=== PATIENT | male | born 1975 | race Caucasian/White ===

== ENCOUNTER 2017-10-18 14:18 | Emergency (ER) | payer BC ==
[2017-10-18 14:30] VITALS: BP 141/73
--- NOTE | 2017-10-18 15:55 | XRAY Report ---
EXAM: CHEST RADIOGRAPHY EXAM DATE: 10/18/2017 03:36 PM. CLINICAL HISTORY: Cough, fever. COMPARISON: None. TECHNIQUE: 2 views. FINDINGS: Lungs/Pleura: No pleural effusion or pneumothorax. Mild bilateral bronchial wall thickening. Mediastinum: Heart and mediastinal contours are unremarkable. Other: Status post median sternotomy with the lowermost and uppermost sternal wires broken. IMPRESSION: Bilateral bronchial wall thickening which can be seen in bronchitis or reactive airways d isgemmae. [facility] Referring Provider Line: [phone] SITE ID: [id number]
[2017-10-18] MEDS ORDERED: predniSONE 20 MG TABLET PO STA (16:18)
[2017-10-18] MEDS ORDERED: IPRATROPIUM/ALBUTEROL 3 ML NEB INH STA (16:19)
--- NOTE | 2017-10-18 16:24 | ED Physician Documentation ---
PD HPI URI - Stated complaint Stated Complaint: COUGH - Chief complaint Chief Complaint: Resp - History obtained from History obtained from: Patient - History of Present Illness Timing - onset: How many weeks ago (1) Timing duration: Weeks (1) Timing details: Gradual onset Pain level max: 4 Pain level now: 2 Associated symptoms: Fever (none now, but last week), Nasal congestion, Rhinorrhea, Dry cough, Dyspnea (wheezing) Contributing factors: COPD / asthma (never used inhalers before, but smokes) Improves by: Rest Worsened by: Activity, Breathing Recently seen: Not recently seen Review of Systems Ears: denies: Ear pain Respiratory: reports: Cough, Wheezing GI: denies: Vomiting, Diarrhea Skin: denies: Rash Musculoskeletal: denies: Neck pain, Back pain Neurologic: denies: Headache PD PAST MEDICAL HISTORY - Past Medical History Past Medical History: Yes Cardiovascular: Coronary artery disease, [place] Neuro: None Musculoskeletal: None - Past Surgical History Past Surgical History: Yes Cardiovascular: CABG - Present Medications Home Medications: Ambulatory Orders Medication Instructions Recorded Confirmed Lisinopril 2.5 mg PO BID 09/10/15 09/10/15 Metoprolol Tartrate 25 mg PO TID 09/10/15 09/10/15 Pantoprazole [Protonix] 40 mg PO DAILY 09/10/15 09/10/15 Rosuvastatin Calcium [Crestor] 40 mg PO DAILY 09/10/15 09/10/15 Albuterol Sulf [Ventolin Hfa 1 - 2 puffs INH Q4HR PRN #1 inhaler 10/18/17 Inhaler] Benzonatate [Tessalon Perle] 100 - 200 mg PO TID PRN #30 capsule 10/18/17 predniSONE [Prednisone] 40 mg PO DAILY #10 tablet 10/18/17 - Allergies Allergies/Adverse Reactions: Allergies Allergy/AdvReac Type Severity Reaction Status Date / Time No Known Drug Allergies Allergy Verified 09/10/15 12:48 - Social History Does the pt smoke?: Yes Smoking Status: Current some day smoker Does the pt drink ETOH?: Yes Does the pt have substance abuse?: No - Immunizations Immunizations are current?: Yes PD ED PE NORMAL - Vitals Vital signs reviewed: Yes - General General: Alert and oriented X 3, No acute distress, Well developed/nourished - HEENT HEENT: PERRL, Ears normal, Moist mucous membranes, Pharynx benign - Neck Neck: Supple, no meningeal sign, No adenopathy - Cardiac Cardiac: RRR, Strong equal pulses - Respiratory Respiratory: No respiratory distress, Other (wheezing bilaterally.) - Abdomen Abdomen: Soft, Non tender, Non distended - Derm Derm: Warm and dry, No rash - Extremities Extremities: No edema, No calf tenderness / cord - Neuro Neuro: Alert and oriented X 3 - Psych Psych: Normal mood, Normal affect Results - Vitals Vitals: Vital Signs - 24 hr 10/18/17 10/18/17 14:21 16:31 Temperature 36.0 C L Heart Rate 71 83 Respiratory 18 18 Rate Blood Pressure 141/73 H O2 Saturation 96 Oxygen O2 Source Room air - Rads (name of study) cxr Radiology: Prelim report reviewed, EMP read contemporaneously, See rad report ( Bilateral bronchial wall thickening which can be seen in bronchitis or reactive airway disease) PD MEDICAL DECISION MAKING - ED course Complexity details: reviewed results, re-evaluated patient, considered differential, d/w patient ED course: Patient is a 42-year-old male who presents to the emergency department with what appears to be a viral upper respiratory infection complicated by wheezing. He is only 42 and his artery had a 5 way bypass, encouraged him to stop smoking. No pneumonia. No sepsis. We will continue supportive care and follow- up with his doctor. Patient counseled regarding signs and symptoms for which I believe and urgent re-evaluation would be necessary. Patient with good understanding of and agreement to plan and is comfortable going home at this time This document was made in part using voice recognition software. While efforts are made to proofread this document, sound alike and grammatical errors may occur. Departure - Departure Disposition: 01 Home, Self Care Clinical Impression: Viral URI with cough Condition: Good Instructions: ED Viral Syndrome Follow-Up: Jany Yi MD [Primary Care Provider] - Within 1 week Prescriptions: Albuterol Sulf [Ventolin Hfa Inhaler] 1 - 2 puffs INH Q4HR PRN #1 inhaler PRN Reason: Shortness Of Air/Wheezing Benzonatate [Tessalon Perle] 100 - 200 mg PO TID PRN #30 capsule PRN Reason: Cough predniSONE [Prednisone] 40 mg PO DAILY #10 tablet Comments: Return if you worsen. This should improve over the next week. You need to stop smoking. Discharge Date/Time: 10/18/17 17:11
== END 2017-10-18 17:11 | disposition home or self-care (01) ==
LOC: ED 14:18
DX: J06.9 Acute upper respiratory infection, unspecified (principal); B97.89 Other viral agents as the cause of diseases classified elsewhere; R05 Cough; I25.10 Atherosclerotic heart disease of native coronary artery without angina pectoris; I25.2 Old myocardial infarction; F17.200 Nicotine dependence, unspecified, uncomplicated; Z95.1 Presence of aortocoronary bypass graft
CPT/HCPCS: 71046; 94640; 94664; 99283; J7512; J7620

== ENCOUNTER 2020-03-03 05:18 | Emergency (ER) | payer BC ==
--- NOTE | 2020-03-03 05:20 | ED Physician Documentation ---
PD HPI ABD PAIN - Stated complaint Stated Complaint: ABD PX - History obtained from History obtained from: Patient - History of Present Illness Timing - onset: How many weeks ago (3 weeks) Timing - details: Abrupt onset, Intermittant Pain level now: 8 Quality: Pain Location: RUQ, Epigastric Radiation: Other (does not radiate) Improved by: Other (no ameliorating factors) Worsened by: Position (lying down) Associated symptoms: Fever, Nausea, Vomiting. No: Diarrhea, Constipation Similar symptoms before: Has not had sx before Recently seen: Not recently seen - Additional information Additional information: c/o abdominal pain, across upper abdomen but most pronounced in epigastrium, episodic x 3 weeks but increasingly frequent, intense, and persistent. Denies h/o similar symptoms Review of Systems Constitutional: denies: Fever, Chills, Sweats Cardiac: reports: Reviewed and negative Respiratory: reports: Reviewed and negative GI: reports: Abdominal Pain, Nausea, Vomiting. denies: Abdominal Swelling, Constipation, Diarrhea : denies: Dysuria, Frequency, Hematuria Skin: reports: Reviewed and negative Musculoskeletal: reports: Reviewed and negative PD PAST MEDICAL HISTORY - Past Medical History Cardiovascular: Coronary artery disease, [place] Musculoskeletal: None - Past Surgical History Past Surgical History: Yes Cardiovascular: CABG - Present Medications Home Medications: Ambulatory Orders Medication Instructions Recorded Confirmed Metoprolol Tartrate 25 mg PO TID 09/10/15 09/10/15 Pantoprazole [Protonix] 40 mg PO DAILY 09/10/15 09/10/15 Rosuvastatin Calcium [Crestor] 40 mg PO DAILY 09/10/15 09/10/15 lisinopriL [Lisinopril] 2.5 mg PO BID 09/10/15 09/10/15 Albuterol Sulf [Ventolin Hfa 1 - 2 puffs INH Q4HR PRN #1 inhaler 10/18/17 Inhaler] Benzonatate [Tessalon Perle] 100 - 200 mg PO TID PRN #30 capsule 10/18/17 predniSONE [Prednisone] 40 mg PO DAILY #10 tablet 10/18/17 Lidocaine HCl [Lidocaine HCl 15 ml PO QID PRN #100 ml 03/03/20 Viscous] Ondansetron Odt [Zofran] 4 mg TL Q6H PRN #10 tablet 03/03/20 oxyCODONE [Roxicodone] 5 - 10 mg PO Q6H PRN #14 tablet 03/03/20 - Allergies Allergies/Adverse Reactions: Allergies Allergy/AdvReac Type Severity Reaction Status Date / Time No Known Drug Allergies Allergy Verified 09/10/15 12:48 - Social History Does the pt smoke?: Yes Smoking Status: Current some day smoker Does the pt drink ETOH?: Yes Does the pt have substance abuse?: No - Immunizations Immunizations are current?: Yes PD ED PE NORMAL - Vitals Vital signs reviewed: Yes - General General: Alert and oriented X 3, Well developed/nourished, Other (appears uncomfortable, painful distress) - HEENT HEENT: Moist mucous membranes - Neck Neck: Supple, no meningeal sign - Cardiac Cardiac: RRR, No murmur, No gallop, No rub - Respiratory Respiratory: No respiratory distress, Clear bilaterally - Abdomen Abdomen: Normal bowel sounds, Soft, Non distended - Back Back: No CVA TTP - Derm Derm: Normal color, Warm and dry, No rash PD ED PE EXPANDED - Abdomen Abdomen: Tender to palpation, RUQ, Epigastric. No: Rebound, Guarding Results - Vitals Vitals: Vital Signs - 24 hr 03/03/20 05:28 Temperature 36.4 C L Heart Rate 80 Respiratory 20 Rate Blood Pressure 188/109 H O2 Saturation 98 Oxygen O2 Source Room air - EKG (time done) No standard instances Rate: Rate (enter#) (71) Rhythm: NSR [place]: LAD Intervals: Normal [place] QRS: Normal Ischemia: Normal ST segments, Q waves (V1-V3) - Labs Labs: Laboratory Tests 03/03/20 03/03/20 03/03/20 05:40 05:40 05:40 WBC 8.6 RBC 5.88 Hgb 16.2 Hct 48.0 MCV 81.6 MCH 27.6 MCHC 33.8 RDW 13.5 Plt Count 216 MPV 8.6 Neut # (Auto) 6.3 Lymph # (Auto) 1.7 [place] # (Auto) 0.5 Eos # (Auto) 0.0 Baso # (Auto) 0.0 Absolute Nucleated RBC 0.00 Nucleated RBC % 0.0 Sodium 136 Potassium 4.1 Chloride 96 L Carbon Dioxide 28 Anion Gap 12.0 BUN 16 Creatinine 1.1 Estimated GFR (MDRD) 73 L Glucose 144 H Calcium 9.9 Total Bilirubin 0.5 AST 29 ALT 34 Alkaline Phosphatase 78 Troponin I High Sens 15.7 Total Protein 7.6 Albumin 4.5 Globulin 3.1 Albumin/Globulin Ratio 1.5 Lipase 29 - Rads (name of study) RUQ US Radiology: Prelim report reviewed, See rad report PD MEDICAL DECISION MAKING - ED course Complexity details: reviewed results, re-evaluated patient, considered differential, d/w patient, d/w family Departure - Departure Disposition: Home, Self Care Clinical Impression: Abdominal pain Condition: Good Instructions: ED Abdominal Pain Unkn Cause Prescriptions: Lidocaine HCl [Lidocaine HCl Viscous] 15 ml PO QID PRN #100 ml PRN Reason: Abdominal Pain oxyCODONE [Roxicodone] 5 - 10 mg PO Q6H PRN #14 tablet PRN Reason: Pain Ondansetron Odt [Zofran] 4 mg TL Q6H PRN #10 tablet PRN Reason: Nausea / Vomiting
[2020-03-03] MEDS ORDERED: SODIUM CHLORIDE 0.9% 1,000 ML IV STA (05:45)
[2020-03-03] MEDS ORDERED: ONDANSETRON 4 MG/2 ML VIAL IVP STA (05:45)
[2020-03-03] MEDS ORDERED: HYDROmorphone 1 MG/ML CARPUJECT IVP STA ×3 (05:45→08:53)
[2020-03-03 05:53] LABS: BASOPHILS % (AUTO) 0.3 %; EOSINOPHILS % (AUTO) 0.5 %; HGB - HEMOGLOBIN 16.2 g/dL (14.0-18.0); LYMPHOCYTES # (AUTO) 1.7 10^3/uL (1.5-3.5); LYMPHOCYTES % (AUTO) 19.5 %; MEAN CORPUSCULAR HEMOGLOBIN 27.6 pg (27.0-31.0); MEAN CORPUSCULAR HGB CONC 33.8 g/dL (32.0-36.0); MEAN CORPUSCULAR VOLUME 81.6 fL (80.0-94.0); MEAN PLATELET VOLUME 8.6 fL (7.4-11.4); MONOCYTES # (AUTO) 0.5 10^3/uL (0.0-1.0); MONOCYTES % (AUTO) 6.3 %; NEUTROPHILS # (AUTO) 6.3 10^3/uL (1.5-6.6); NEUTROPHILS % (AUTO) 72.8 %; PLT - PLATELET COUNT 216 10^3/uL (130-450); RED BLOOD COUNT 5.88 10^6/uL (4.70-6.10); RED CELL DISTRIBUTION WIDTH 13.5 % (12.0-15.0); WHITE BLOOD COUNT 8.6 x10^3/uL (4.8-10.8)
[2020-03-03] MEDS ORDERED: ONDANSETRON 4 MG/2 ML VIAL ONE (06:03)
[2020-03-03 06:07] LABS: ALBUMIN 4.5 g/dL (3.2-5.5); ALBUMIN/GLOBULIN RATIO 1.5 (1.0-2.2); BILIRUBIN,TOTAL 0.5 mg/dL (0.2-1.0); CALCIUM 9.9 mg/dL (8.5-10.3); CREATININE 1.1 mg/dL (0.6-1.2); TOTAL PROTEIN 7.6 g/dL (6.7-8.2)
--- NOTE | 2020-03-03 08:23 | Ultrasound Report ---
PROCEDURE: Abdomen Limited INDICATIONS: RUQ, epigastric pain TECHNIQUE: Real-time focused scanning was performed of the abdomen, with image documentation. COMPARISON: None FINDINGS: The liver is echogenic consistent with fatty change. No focal liver mass. Liver is not enl arged. No gallstones. No gallbladder wall thickening. No sonographic Darby's sign. Visualized portions of the pancreas are unremarkable. Right kidney measures 10.6 cm. No right hydronephrosis. IMPRESSION: 1. Hepatic steatosis. 2. No gallstone disease. Reviewed by: Honorio Bustamante MD on 03/03/2020 7:22 AM [facility] Approved by: Honorio Bustamante MD on 03/03/2020 7:22 AM CHUCK Station ID: [id number]
[2020-03-03] MEDS ORDERED: LIDOCAINE VISCOUS 2% 15 ML UDC MM STA (08:53)
[2020-03-03] MEDS ORDERED: PANTOPRAZOLE 40 MG TABLET PO STA (08:53)
[2020-03-03] MEDS ORDERED: MAG HYDROX/AL HYDROX/SIMETH 30 ML UDC PO STA (08:53)
[2020-03-03 09:34] VITALS: BP 138/86
== END 2020-03-03 09:33 | disposition home or self-care (01) ==
LOC: ED 05:18
DX: R10.11 Right upper quadrant pain (principal); R10.13 Epigastric pain; R11.2 Nausea with vomiting, unspecified; K76.0 Fatty (change of) liver, not elsewhere classified; I25.10 Atherosclerotic heart disease of native coronary artery without angina pectoris; Z95.1 Presence of aortocoronary bypass graft; F17.200 Nicotine dependence, unspecified, uncomplicated
CPT/HCPCS: 36415; 76705; 80053; 83690; 84484; 85025; 93005; 96361; 96374; 96375; 96376; 99284; A9270; J1170

== ENCOUNTER 2020-03-07 10:44 | Outpatient (CLI) | payer BC | END 2020-03-07 10:45 | disposition home or self-care (01) | LOC: LAB.S 10:44 | PROVIDERS: ATTEND Family Medicine | DX: Z53.9 Procedure and treatment not carried out, unspecified reason (principal) ==

== ENCOUNTER 2020-03-08 08:00 | Outpatient (CLI) | payer BC ==
[2020-03-08 15:37] LABS: H. PYLORIS ANTIGEN STL NEGATIVE (Negative)
== END 2020-03-08 23:59 | disposition home or self-care (01) ==
LOC: LAB.R 08:00
PROVIDERS: ATTEND Family Medicine
DX: R10.9 Unspecified abdominal pain (principal)
CPT/HCPCS: 87338

== ENCOUNTER 2020-03-08 11:54 | Emergency (ER) | payer BC ==
--- NOTE | 2020-03-08 12:27 | ED Physician Documentation ---
PD HPI DYSPNEA - Stated complaint Stated Complaint: CP PX - Chief complaint Chief Complaint: Cardiac - History obtained from History obtained from: Patient, Family - History of Present Illness Timing - onset: How many weeks ago (3) Timing - duration: Weeks Timing - details: Gradual onset, Still present Pain level max: 9 Pain level now: 4 - Additional information Additional information: 44-year-old male presents to the emergency department with chief complaint of unabated epigastric abdominal pain. Was seen for similar here March 03. At that time he had a negative work-up. Since then patient reports that his pain has become progressive. He is started to have black or melena colored stools as well as pink light red vomit. Patient denies taking any anticoagulation or NSAIDs. He does take a baby aspirin every day. He has no pertinent past abdominal surgical history. His only surgical history is that of a CABG in 2013.At this time patient does endorse chest pain and some dyspnea as well.He has had no fevers syncope.Has never had a colonoscopy or EGD. Patient has been prescribed omeprazole in the past for suspected GERD. Patient saw his primary care physician yesterday and was prescribed Prilosec. He has not filled it, however he reports that the omeprazole is no longer helping with the symptoms. PD PAST MEDICAL HISTORY - Past Medical History Cardiovascular: Coronary artery disease, [place] Musculoskeletal: None - Past Surgical History Past Surgical History: Yes Cardiovascular: CABG - Present Medications Home Medications: Ambulatory Orders Medication Instructions Recorded Confirmed Metoprolol Tartrate 25 mg PO TID 09/10/15 09/10/15 Pantoprazole [Protonix] 40 mg PO DAILY 09/10/15 09/10/15 Rosuvastatin Calcium [Crestor] 40 mg PO DAILY 09/10/15 09/10/15 lisinopriL [Lisinopril] 2.5 mg PO BID 09/10/15 09/10/15 Albuterol Sulf [Ventolin Hfa 1 - 2 puffs INH Q4HR PRN #1 inhaler 10/18/17 Inhaler] Benzonatate [Tessalon Perle] 100 - 200 mg PO TID PRN #30 capsule 10/18/17 predniSONE [Prednisone] 40 mg PO DAILY #10 tablet 10/18/17 Lidocaine HCl [Lidocaine HCl 15 ml PO QID PRN #100 ml 03/03/20 Viscous] Ondansetron Odt [Zofran] 4 mg TL Q6H PRN #10 tablet 03/03/20 oxyCODONE [Roxicodone] 5 - 10 mg PO Q6H PRN #14 tablet 03/03/20 - Allergies Allergies/Adverse Reactions: Allergies Allergy/AdvReac Type Severity Reaction Status Date / Time No Known Drug Allergies Allergy Verified 09/10/15 12:48 - Social History Does the pt smoke?: Yes Smoking Status: Current some day smoker Does the pt drink ETOH?: Yes Does the pt have substance abuse?: No - Immunizations Immunizations are current?: Yes PD ED PE EXPANDED - General General: Alert, Other (appears uncomfortable) - Neck Neck: No tenderness. No: Adenopathy - Cardiac Cardiac: Regular Rate, Radial strong equal - Respiratory Respiratory: Clear to ausultation latricia. No: Distress, Labored - Abdomen Abdomen: Normal Bowel sounds, RUQ, Epigastric, Other (tenderness epigastrium and RUQ. ) Results - Vitals Vitals: Vital Signs - 24 hr 03/08/20 03/08/20 03/08/20 12:00 12:06 12:24 Temperature 36.9 C Heart Rate 91 92 Respiratory 17 20 Rate Blood Pressure 166/107 H 107/107 H Blood Pressure 170/107 H [Left] O2 Saturation 98 03/08/20 03/08/20 03/08/20 12:36 13:30 16:31 Temperature 36.9 C Heart Rate 94 81 77 Respiratory 19 20 19 Rate Blood Pressure 149/91 H 140/90 H 127/89 H Blood Pressure [Left] O2 Saturation 95 96 97 Oxygen O2 Source Room air - EKG (time done) 1203 Rate: Rate (enter#) (86) Rhythm: NSR [place]: LAD Intervals: Normal ID QRS: Normal Ischemia: Non specific changes Compare to prior EKG: Unchanged from prior EKG Computer interpretation: Agree with computer (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) - Labs Labs: Laboratory Tests 03/08/20 03/08/20 03/08/20 12:20 12:20 12:20 WBC 8.6 RBC 5.78 Hgb 16.1 Hct 47.1 MCV 81.5 MCH 27.9 MCHC 34.2 RDW 13.6 Plt Count 220 MPV 8.9 Neut # (Auto) 6.6 Lymph # (Auto) 1.2 L [place] # (Auto) 0.7 Eos # (Auto) 0.1 Baso # (Auto) 0.0 Absolute Nucleated RBC 0.00 Nucleated RBC % 0.0 PT INR APTT Sodium 135 Potassium 4.0 Chloride 99 L Carbon Dioxide 25 Anion Gap 11.0 BUN 18 Creatinine 1.0 Estimated GFR (MDRD) 82 L Glucose 145 H Lactic Acid Calcium 9.4 Total Bilirubin 2.8 H AST 412 H ALT 416 H Alkaline Phosphatase 146 H Troponin I High Sens 11.8 Total Protein 8.1 Albumin 4.8 Globulin 3.3 Albumin/Globulin Ratio 1.5 Lipase 44 03/08/20 03/08/20 12:20 12:40 WBC RBC Hgb Hct MCV MCH MCHC RDW Plt Count MPV Neut # (Auto) Lymph # (Auto) [place] # (Auto) Eos # (Auto) Baso # (Auto) Absolute Nucleated RBC Nucleated RBC % PT 12.5 INR 1.1 APTT 33.4 H Sodium Potassium Chloride Carbon Dioxide Anion Gap BUN Creatinine Estimated GFR (MDRD) Glucose Lactic Acid 1.4 Calcium Total Bilirubin AST ALT Alkaline Phosphatase Troponin I High Sens Total Protein Albumin Globulin Albumin/Globulin Ratio Lipase - Rads (name of study) ABD CT Radiology: Final report received (Choledocholithiasis demonstrated with multiple clustered stones in the distal common bile duct no associated biliary ductal dilationCholelithiasis without CT evidence of cholecystitis.) abd us Radiology: Final report received (Diffuse hepatic steatosis versus chronic hepatocellular disease.No biliary ductal dilation visualized. Limited visualization of the gallbladder with areas of mildly thickened gallbladder wall. No definite sonographic evidence for Coleydocolithiasis or acute cholecystitis) PD MEDICAL DECISION MAKING - ED course Complexity details: reviewed old records, reviewed results, re-evaluated patient, d/w patient, d/w family ED course: 44-year-old gentleman returns to the emergency department with persistent right upper quadrant and epigastric abdominal pain. Seen for similar 2 days ago. - On repeat labs today he certainly has developed an obstructive transaminitis.CT scan of the abdomen shows choledocholithiasis. - I have spoken with the surgeon Dr. Tenorio at [facility] and she is agreed for patient to be transferred. - I have discussed these findings with the patient and his . He is clinically stable for transfer and will be transported via ALS. Departure - Departure Disposition: 02 Transfer Acute Care Hosp Clinical Impression: Choledocholithiasis Condition: Stable
[2020-03-08 12:30] LABS: BASOPHILS % (AUTO) 0.5 %; EOSINOPHILS # (AUTO) 0.1 10^3/uL (0.0-0.7); EOSINOPHILS % (AUTO) 0.6 %; HGB - HEMOGLOBIN 16.1 g/dL (14.0-18.0); LYMPHOCYTES # (AUTO) 1.2 10^3/uL (1.5-3.5); LYMPHOCYTES % (AUTO) 13.3 %; MEAN CORPUSCULAR HEMOGLOBIN 27.9 pg (27.0-31.0); MEAN CORPUSCULAR HGB CONC 34.2 g/dL (32.0-36.0); MEAN CORPUSCULAR VOLUME 81.5 fL (80.0-94.0); MEAN PLATELET VOLUME 8.9 fL (7.4-11.4); MONOCYTES # (AUTO) 0.7 10^3/uL (0.0-1.0); MONOCYTES % (AUTO) 8.2 %; NEUTROPHILS # (AUTO) 6.6 10^3/uL (1.5-6.6); NEUTROPHILS % (AUTO) 76.8 %; PLT - PLATELET COUNT 220 10^3/uL (130-450); RED BLOOD COUNT 5.78 10^6/uL (4.70-6.10); RED CELL DISTRIBUTION WIDTH 13.6 % (12.0-15.0); WHITE BLOOD COUNT 8.6 x10^3/uL (4.8-10.8)
[2020-03-08 12:40] LABS: INR 1.1 (0.8-1.2); PT - PROTHROMBIN TIME 12.5 secs (9.9-12.6)
[2020-03-08 12:47] LABS: PARTIAL THROMBOPLASTIN TIME 33.4 secs (24.9-33.3)
[2020-03-08 12:50] LABS: ALBUMIN 4.8 g/dL (3.2-5.5); ALBUMIN/GLOBULIN RATIO 1.5 (1.0-2.2); BILIRUBIN,TOTAL 2.8 mg/dL (0.2-1.0); CALCIUM 9.4 mg/dL (8.5-10.3); TOTAL PROTEIN 8.1 g/dL (6.7-8.2)
[2020-03-08] MEDS ORDERED: SODIUM CHLORIDE 0.9% 1,000 ML IV STA (12:50)
--- NOTE | 2020-03-08 12:53 | XRAY Report ---
PROCEDURE: Chest 1 View X-Ray INDICATIONS: Chest pain TECHNIQUE: One view of the chest was acquired. COMPARISON: To 1118 FINDINGS: Surgical changes and devices: Median sternotomy wires are again seen.. Lungs and pleura: No pleural effusions or pneumothorax. Lungs are clear. Mediastinum: Mediastinal contours appear normal. Heart size is borderline enlarged. Bones and chest wall: No suspicious bony lesions. Overlying soft tissues appear unremarkable. IMPRESSION: No acute cardiopulmonary pathology. Reviewed by: Brady Buitrago MD on 03/08/2020 12:52 PM PDT Approved by: Brady Buitrago MD on 03/08/2020 12:52 PM PDT Station ID: [id number]
[2020-03-08] MEDS ORDERED: HYDROmorphone 1 MG/ML CARPUJECT IVP STA (13:10)
[2020-03-08] MEDS ORDERED: IOVERSOL 320 100 ML VIAL IVP ONE ×2 (13:32→14:47)
--- NOTE | 2020-03-08 14:43 | CT Report ---
PROCEDURE: Abdomen/Pelvis W INDICATIONS: melena, epigastric pain CONTRAST: IV CONTRAST: Optiray 320 ml: 100 PO CONTRAST: *NO PO CONTRAST TECHNIQUE: After the administration of oral and intravenous contrast, 5 mm thick sections acquired from the diap hragms to the symphysis. 5 mm thick coronal and sagittal reformats were acquired. For radiation dos e reduction, the following was used: automated exposure control, adjustment of mA and/or kV accordin g to patient size. COMPARISON: Concurrent right upper quadrant ultrasound. FINDINGS: Image quality: Excellent. ABDOMEN: Lung bases: Lung bases are clear. Heart size is normal. Solid organs: There are calcified gallstones demonstrated in the gallbladder fundus. No associated g allbladder wall thickening or pericholecystic fluid. There is linear high density within the distal c ommon bile duct extending to the ampulla of Vater involving a segment of approximately 3.3 cm in yvette th. The findings are compatible with multiple small clustered common duct stones. There is no intra o r extra hepatic biliary ductal dilatation. Common bile duct measures up to approximately 0.6 cm in di ameter. There is mildly heterogeneous hypoattenuation of the liver consistent with fatty infiltration with re lative sparing along the gallbladder fossa. Spleen is normal in size. Pancreas enhances normally with out peripancreatic fat stranding or fluid collections. No pancreatic duct dilatation. No adrenal nodu les. Kidneys demonstrate no hydronephrosis. Peritoneum and bowel: Bowel loops demonstrate normal wall thickness and caliber. The appendix is nor mal in appearance. There are a few colonic diverticula without acute diverticulitis. No free fluid or air. Nodes and vessels: No retroperitoneal or mesenteric adenopathy by size criteria. Aorta and inferior vena cava are normal in size. Miscellaneous: No ventral hernias. PELVIS: Genitourinary: Bladder wall thickness is normal. Miscellaneous: There is a small fat-containing right inguinal hernia. No inguinal adenopathy. Bones: No suspicious bony lesions. No vertebral body compression fractures. IMPRESSION: 1. Choledocholithiasis demonstrated with multiple clustered stones in the distal common bile duct. No associated biliary ductal dilatation. 2. Cholelithiasis without CT evidence of cholecystitis. 3. Hepatic steatosis. Reviewed by: Ej Santos MD on 03/08/2020 2:42 PM PDT Approved by: Ej Santos MD on 03/08/2020 2:42 PM PDT Station ID: [id number]
--- NOTE | 2020-03-08 14:49 | Ultrasound Report ---
PROCEDURE: Abdomen Limited INDICATIONS: transaminates; eval for obstructing stone TECHNIQUE: Real-time scanning was performed of the abdominal and retroperitoneal organs, with image documentatio n. COMPARISON: CT abdomen and pelvis dated earlier same day and abdominal ultrasound dated 03/03/2020 FINDINGS: Liver: Liver is diffusely echogenic without focal intrahepatic mass lesions. Gallbladder: The gallbladder is not well visualized secondary to patient scanning characteristics. Th ere are areas of mild wall thickening measuring up to 3-4 mm in thickness. No pericholecystic fluid. No definite gallstone or choledocholithiasis as seen on comparison CT. Biliary ducts: Intrahepatic bile ducts are non-dilated. Extrahepatic bile duct caliber measures 7 m m. Normal is 6-7 mm or less in diameter, or 10 mm or less post-cholecystectomy. Pancreas: Pancreas is not well visualized secondary to bowel gas. Spleen: Spleen is normal in size a nd homogeneous in echotexture. Kidneys: Right kidney measures 12 cm long and demonstrates normal echotexture without suspicious ma ss lesions. No hydronephrosis or nephrolithiasis. No solid masses. Aorta: Visualized aorta is normal in caliber at less than 3 cm. IVC: Intrahepatic inferior vena cava is patent. Miscellaneous: No free abdominal fluid. IMPRESSION: 1. Diffuse hepatic steatosis versus chronic hepatocellular disease. 2. Limited visualization of the gallbladder with areas of mildly thickened gallbladder wall. No defin ite sonographic evidence for choledocholithiasis or acute cholecystitis. However, there were gallston es and possible choledocholith near the ampulla visualized on comparison CT from same day. No biliary ductal dilatation visualized. Reviewed by: Donovan Mary MD on 03/08/2020 2:48 PM PDT Approved by: Donovan Mary MD on 03/08/2020 2:48 PM PDT Station ID: [id number]
[2020-03-08] MEDS ORDERED: MAG HYDROX/AL HYDROX/SIMETH 30 ML UDC PO STA (15:33)
[2020-03-08] MEDS ORDERED: LIDOCAINE VISCOUS 2% 15 ML UDC MM STA (15:34)
[2020-03-08 19:29] VITALS: BP 130/88
== END 2020-03-08 19:30 | disposition short-term general hospital (02) ==
LOC: ED 11:54
DX: K80.70 Calculus of gallbladder and bile duct without cholecystitis without obstruction (principal); R74.0 Nonspecific elevation of levels of transaminase and lactic acid dehydrogenase [LDH]; F17.200 Nicotine dependence, unspecified, uncomplicated; R10.9 Unspecified abdominal pain
CPT/HCPCS: 36415; 71045; 74177; 76705; 80053; 83605; 83690; 84484; 85025; 85610; 85730; 87338; 93005; 96361; 96374; 99281; 99285; A9270; J1170; Q9967

== ENCOUNTER 2020-03-08 19:23 | Outpatient (CLI) | payer BC | END 2020-03-08 23:59 | disposition short-term general hospital (02) | LOC: EMS 19:23 | PROVIDERS: ATTEND Surgery | DX: K81.9 Cholecystitis, unspecified (principal) | CPT/HCPCS: A0425; A0427 ==

== ENCOUNTER 2020-08-04 11:55 | Outpatient (CLI) | payer BC ==
--- NOTE | 2020-08-04 13:25 | XRAY Report ---
PROCEDURE: Lumbar Spine 2 View INDICATIONS: LOW BACK PAIN TECHNIQUE: 2 views of the lumbar spine were acquired. COMPARISON: None available at time of dictation. FINDINGS: Bones: 5 [id number] vertebrae are present. There is normal bony alignment. No vertebral body compression fractures. Vertebral body heights are maintained. Intervertebral disc spaces are maintai vinod. There is mild endplate degenerative changes and facet arthropathy which is worse at the lumbosac ral junction. No suspicious bony lesions. Soft tissues: Overlying bowel gas pattern is normal. A few vascular calcifications within the aorta. IMPRESSION: Mild multilevel lumbar spondylosis. Reviewed by: Khoi Ziegler DO on 08/04/2020 12:24 PM [facility] Approved by: Khoi Ziegler DO on 08/04/2020 12:24 PM [facility] Station ID: [id number]
== END 2020-08-04 23:59 | disposition home or self-care (01) ==
LOC: DI.S 11:55
PROVIDERS: ATTEND Physician Assistant Medical
DX: M47.816 Spondylosis without myelopathy or radiculopathy, lumbar region (principal); M47.817 Spondylosis without myelopathy or radiculopathy, lumbosacral region

== ENCOUNTER 2022-09-20 09:00 | Outpatient (CLI) | payer BC | END 2022-09-20 23:59 | disposition home or self-care (01) | LOC: LAB.S 09:00 | PROVIDERS: ATTEND Physician Assistant | DX: N45.1 Epididymitis (principal) | CPT/HCPCS: 87086 ==

== ENCOUNTER 2023-01-01 06:46 | Outpatient (CLI) | payer BC ==
--- NOTE | 2023-01-01 10:02 | Ultrasound Report ---
PROCEDURE: Aorta Screening INDICATIONS: TOBACCO USER TECHNIQUE: Real time scanning was performed of the aorta and iliac arteries, with image documentatio n. COMPARISON: None. FINDINGS: Aorta: Proximal aortic diameter measures 2.4 x 2.4 cm. Mid-aorta measures 2.0 x 1.9 cm. Distal aor tic diameter is 1.8 x 1.8 cm. Iliac arteries: Right common iliac artery measures 1.3 x 1.4 cm. Left common iliac artery measures 1.3 x 1.4 cm. There is calcified plaque. IMPRESSION: No abdominal aortic aneurysm. Reviewed by: Manuel Lance MD on 01/01/2023 10:01 AM PDT Approved by: Manuel Lance MD on 01/01/2023 10:01 AM PDT Station ID: [id number]
== END 2023-01-01 06:47 | disposition home or self-care (01) ==
LOC: DI 06:46
PROVIDERS: ATTEND Registered Nurse
DX: Z13.6 Encounter for screening for cardiovascular disorders (principal); Z72.0 Tobacco use

== ENCOUNTER 2023-01-06 07:40 | Outpatient (CLI) | payer BC ==
--- NOTE | 2023-01-06 07:41 | CARDIAC PROCEDURE NOTE ---
Stress Test Report Service Date: 01/06/23 Service Time: 08:00 Ordering Provider: DWAIN Bertrand Indication for Test: Repeat risk stratification for patient with 5-vessel CABG 8 yrs ago, who remains on secondary preventive measures but continues active tobacco smoking. 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 He reports that his recovery was uneventful and he returned to work as a contractor, while remaining on aspirin and rosuvastatin "most of the time" since then. He has continued active tobacco smoking however, and upon recently establishing care with his new provider (Ms Hahn) it was recommended that he undergo repeat risk stratification that is ordered today. He does not endorse concerning symptoms such as recurrent chest discomfort, unexpected exertional dyspnea or reduction in stamina. Cardiac Risk Factors: Positive for known CAD s/p CABG surgery, continued tobacco smoking, family history of premature CAD in father (SC at age 39), hyperlipidemia and hypertension; no reported hiustory of diabetes. Type of Stress Test: ETT with Echocardiography Procedure: -Exercise Treadmill Test- After signing informed consent, the patient underwent rest echo imaging (with placement of peripheral IV and administration of Definity contrast to improve endocardial border definition) and then performed treadmill exercise using a Adrian protocol. The patient exercised for 9 minutes 46 seconds and achieved a peak heart rate of 158 (91 percent predicted maximum heart rate for age), and an estimated workload of 11.4 METS. The test was terminated due to fatigue/shortness of breath. Resting heart rate: 77 Peak heart rate: 158 Normal response to exercise. Resting BP: 141/79 Peak BP: 240/101 Mildly hypertensive at rest with physiologic increase in systolic BP and abnormal increase in diastolic BP in response to exercise. Rhythm during exercise: Sinus rhythm throughout. Symptoms: The patient denied experiencing any chest/arm/jaw discomfort. EKG at rest showed normal sinus rhythm with incomplete right bundle branch block pattern, with abnormal R wave progression in leads V1V4, consistent with prior anteroseptal infarct. EKG at peak stress showed no ischemia by EKG criteria. In Recovery heart rate and blood pressure rapidly and normally returned towards baseline levels. Echo imaging, performed at rest and with stress, will be reported separately. IDeondre MD, was present throughout this treadmill stress study and supervised it in its entirety. Summary: 1) Exercise tolerance modestly reduced for age and sex as evidenced by ARNEL of 12%. 2) Abnormal resting EKG. 3) Adequate level of exercise was achieved on this treadmill stress test. 5) No ischemic changes by EKG criteria were seen at peak stress. 6) Echo image interpretation reveals normal left ventricular size, wall thickness and systolic function, with paradoxical septal motion consistent with prior bypass surgery. With exercise there was appropriate hyperdynamic augmentation of all segments, indicating no inducible ischemia. No significant valvular abnormality or elevation of estimated pulmonary artery systolic pressure seen on screening study. See separate report for more details. Conclusions and Recommendations: 1) Reassuring Adrian protocol treadmill results with appropriate hemodynamic response, and no evidence of inducible ischemia by symptoms, EKG or echo criteria. 2) Patient is encouraged to re-establish with Cardiology, to confirm that his medical regimen remains appropriate, as well as to renew his efforts at discontinuation of cigarette smoking.
[2023-01-06] MEDS ORDERED: NITROGLYCERIN SL 0.4 MG TABLET SL ONE (07:45)
[2023-01-06] MEDS ORDERED: PERFLUTREN LIPID MICROSPHERES 1.65 MG/1.5 ML VIAL IVP ONE (09:14)
== END 2023-01-06 07:41 | disposition home or self-care (01) ==
LOC: DI 07:40
PROVIDERS: ATTEND Registered Nurse
DX: I21.9 Acute myocardial infarction, unspecified (principal); I45.10 Unspecified right bundle-branch block; I25.10 Atherosclerotic heart disease of native coronary artery without angina pectoris; E78.5 Hyperlipidemia, unspecified; I10 Essential (primary) hypertension; F17.200 Nicotine dependence, unspecified, uncomplicated; Z95.1 Presence of aortocoronary bypass graft; Z82.49 Family history of ischemic heart disease and other diseases of the circulatory system
CPT/HCPCS: 93016; 93017; 93018; 93350; A9270; Q9957

== ENCOUNTER 2023-07-21 16:07 | Emergency (ER) | payer BC ==
[2023-07-21 16:25] VITALS: BP 177/96; O2SAT 98
--- NOTE | 2023-07-21 17:02 | ED Physician Documentation ---
History of Present Illness - Stated complaint Stated Complaint: BACK PX - Chief complaint Chief Complaint: Back Pain - Additonal information Additional information: 47-year-old male presents emergency department for evaluation of 1 month low back pain. Reports that it is midline and radiates to both buttocks. No falls or trauma. No fevers. No history of IV drug use. No history of cancer. No night sweats or weight loss. No saddle anesthesia, no loss of bowel or bladder function. Patient has been to the local walk-in clinic twice once receiving Flexeril without relief of pain was seen again on the where he received a Medrol Dosepak again without relief of pain. He is taking ibuprofen 800 mg twice daily which she says does improve the pain for short period of time. States that most of the pain is when he first gets up or gets moving but as he starts to walk it gently gets better. Review of Systems Musculoskeletal: reports: Back pain PD PAST MEDICAL HISTORY - Past Medical History Past Medical History: Yes Cardiovascular: Hypertension, High cholesterol, Coronary artery disease, [place] Respiratory: None Endocrine/Autoimmune: None GI: None : None Psych: None Musculoskeletal: None Derm: None - Past Surgical History Past Surgical History: Yes General: Cholecystectomy Cardiovascular: CABG - Present Medications Home Medications: Ambulatory Orders Medication Instructions Recorded Confirmed Rosuvastatin Calcium [Crestor] 40 mg PO DAILY 09/10/15 07/21/23 oxyCODONE [Roxicodone] 5 mg PO BID PRN #7 tablet 07/21/23 - Allergies Allergies/Adverse Reactions: Allergies Allergy/AdvReac Type Severity Reaction Status Date / Time No Known Drug Allergies Allergy Verified 07/21/23 16:14 - Social History Does the pt smoke?: Yes Smoking Status: Current every day smoker Does the pt drink ETOH?: Yes Does the pt have substance abuse?: Yes Substance Use and Type: Marijuana - Immunizations Immunizations are current?: Yes PD ED PE EXPANDED - General General: Alert, No acute distress - Back Back: Soft tissue tenderness (Lower paraspinous lumbar region), Straight leg raise + R, Straight leg raise + L, Other (No paresthesia lower extremity. Motor strength 5 of 5. 2+ patellar reflexes. Normal gait.). No: Vertebral tenderness Results - Vitals Vitals: Vital Signs - 24 hr 07/21/23 16:15 Temperature 36.7 C Heart Rate 93 Respiratory 18 Rate Blood Pressure 177/96 H O2 Saturation 98 Oxygen O2 Source Room air PD Medical Decision Making - ED course Complexity details: d/w patient ED course: Subacute low back pain ongoing now for more than a month without relief from steroids, Motrin and muscle relaxers. He has been referred to physical therapy but has not followed up. No red flags on exam, in fact he has a reassuring exam with a normal gait. I discussed with patient possible etiologies of low back pain. An MRI is not indicated today. I encouraged him to follow closely with PCP as well as physical therapy. If conservative measures such as PT does not make the back pain better he may benefit from an MRI or consideration of referral to a back pain specialist. Otherwise usual emergent return precautions and red flags were discussed. Departure - Departure Disposition: 01 Home, Self Care Clinical Impression: Low back pain Qualifiers: Chronicity: acute Back pain laterality: bilateral Sciatica presence: unspecified whether sciatica present Qualified Code(s): M54.50 - Low back pain, unspecified Instructions: ED Back Care Tips, ED Neck Back Pain General Prescriptions: oxyCODONE [Roxicodone] 5 mg PO BID PRN #7 tablet PRN Reason: Pain Comments: Gio you have been having back pain now for more than a month. It is likely that you have some degenerative disc disease, even herniated disc, or even a condition called foraminal stenosis. I gently encourage you to follow-up with physical therapy in order to practice some exercises and stretching that may help improve your back pain. If you find that its not improving over time please talk with your primary doctor. At that time an MRI may be indicated. Still if after that your symptoms or not improving you may then benefit from referral to a back pain specialist. Return to the ER if you develop any numbness in your genital region, lose control of your bowel or bladder function, have fevers, night sweats, sudden weakness in your legs or any other emergent concerns. I am prescribing a short course of narcotic pain medication for you. These are potentially dangerous and addictive medications that should be used carefully. These medications may constipate you. Take an eezh-hzr-zulqgzh stool softener (docusate) twice daily with plenty of water while taking these medications. If y ou go 24 hours without a bowel movement, take [id number] miralax, per package instructions. Do not drink or drive while taking these medications. If you received narcotic or sedating medications while in the emergency department, do not drive for 24 hours. Store this medication in a safe, secure place and out of reach of children. It is a violation of federal law to give or sell this medication to another person or to use in a manner other than prescribed. The ED will not refill narcotic prescriptions, including prescriptions lost or stolen. To dispose of unwanted medications: 1. [facility] at [address] in [place] has a medication drop box. They accept prescription medications (in pill form) Thursday through Thursday 9:00 a.m. to 5:00 p.m. 2. [facility] accepts prescription medications (in pill form only) for disposal year round. Call for more information. 3. Contact the [facility] for the next [facility] sponsored prescription drug collection event. , [phone], or [phone]; Note that many narcotic pain relievers also contain Tylenol/acetaminophen. Please ensure that your total dose of acetaminophen from all sources does not exceed 3 g (3000 mg) per day.
== END 2023-07-21 17:15 | disposition home or self-care (01) ==
LOC: ED 16:07
DX: M54.50 Low back pain, unspecified (principal); I10 Essential (primary) hypertension; F17.200 Nicotine dependence, unspecified, uncomplicated
CPT/HCPCS: 99282; 99283

== ENCOUNTER 2023-12-21 07:04 | Outpatient (CLI) | payer BC ==
[2023-12-21 14:23] LABS: BASOPHILS # (AUTO) 0.1 10^3/uL (0.0-0.1); BASOPHILS % (AUTO) 0.8 %; EOSINOPHILS # (AUTO) 0.2 10^3/uL (0.0-0.7); EOSINOPHILS % (AUTO) 2.4 %; HCT - HEMATOCRIT 48.8 % (42.0-52.0); HGB - HEMOGLOBIN 15.4 g/dL (14.0-18.0); LYMPHOCYTES # (AUTO) 2.6 10^3/uL (1.5-3.5); LYMPHOCYTES % (AUTO) 32.9 %; MEAN CORPUSCULAR HEMOGLOBIN 26.8 pg (27.0-31.0); MEAN CORPUSCULAR HGB CONC 31.6 g/dL (32.0-36.0); MEAN PLATELET VOLUME 9.3 fL (7.4-11.4); MONOCYTES # (AUTO) 0.9 10^3/uL (0.0-1.0); MONOCYTES % (AUTO) 10.8 %; NEUTROPHILS # (AUTO) 4.2 10^3/uL (1.5-6.6); NEUTROPHILS % (AUTO) 52.7 %; PLT - PLATELET COUNT 230 10^3/uL (130-450); RED BLOOD COUNT 5.74 10^6/uL (4.70-6.10); RED CELL DISTRIBUTION WIDTH 13.6 % (12.0-15.0); WHITE BLOOD COUNT 7.9 x10^3/uL (4.8-10.8)
[2023-12-21 14:45] LABS: ALBUMIN 4.3 g/dL (3.2-5.5); ALBUMIN/GLOBULIN RATIO 1.6 (1.0-2.2); ALKALINE PHOSPHATASE 77 IU/L (42-121); ALT ALANINE AMINOTRANSFERASE 26 IU/L (10-60); AST ASPARTATE AMINOTRANSFERASE 20 IU/L (10-42); BILIRUBIN,TOTAL 0.4 mg/dL (0.2-1.0); BUN - BLOOD UREA NITROGEN 16 mg/dL (6-20); CALCIUM 9.6 mg/dL (8.5-10.3); CARBON DIOXIDE - CO2 27 mmol/L (21-32); CHLORIDE 102 mmol/L (101-111); CHOL/HDL RATIO 8.8 (<5.0); CHOLESTEROL 273 mg/dL; GFR - MDRD 80 (>89); GLUCOSE 118 mg/dL (74-104); HDL CHOLESTEROL 31 mg/dL; POTASSIUM 4.5 mmol/L (3.5-4.5); SODIUM 136 mmol/L (135-145); TRIGLYCERIDES 572 mg/dL (48-352)
[2023-12-21 15:06] LABS: LDL CHOLESTEROL,DIRECT 141 mg/dL (75-193); LDLD/HDL RATIO 4.5 (<3.6)
== END 2023-12-21 07:05 | disposition home or self-care (01) ==
LOC: LAB.S 07:04
PROVIDERS: ATTEND Registered Nurse
DX: Z13.228 Encounter for screening for other metabolic disorders (principal); E78.5 Hyperlipidemia, unspecified; Z13.0 Encounter for screening for diseases of the blood and blood-forming organs and certain disorders involving the immune mechanism
CPT/HCPCS: 36415; 80053; 80061; 83721; 85025